=== PATIENT | male | born 1995 | race American Indian/Alaskan Native ===

== ENCOUNTER 2022-01-12 02:30 | Emergency (ER) | payer SELFPAY ==
--- NOTE | 2022-01-12 06:11 | XRay Report ---
LEFT ANKLE 2 VIEWS INDICATION / CLINICAL INFORMATION: left ankle injury COMPARISON: None available. FINDINGS: BONES and JOINT(S): No acute fracture or subluxation. No significant arthritis. SOFT TISSUES: There is mild generalized edema. No other significant abnormality. ADDITIONAL FINDINGS: None. IMPRESSION: Mild left ankle edema without other acute findings. Signer Name: Huan Godoy MD Signed: 01/12/2022 6:06 AM Workstation Name: [id number]
--- NOTE | 2022-01-12 08:15 | Emergency Department Report ---
ED Lower Extremity HPI - General Chief Complaint: Extremity Injury, Lower Stated Complaint: ANKLE PAIN Time Seen by Provider: 01/12/22 07:57 Source: patient, EMS Mode of arrival: Stretcher Limitations: No Limitations - History of Present Illness Initial Comments: 26 yo black male with no pmh presents to ed for evaluation of left ankle pain. He states that he was outside playing with his kids yesterday, fell, and has been having left ankle pain since then. He states that pain is 10/10. MD Complaint: ankle injury -: days(s) (1) Injury: Ankle: Left Type of Injury: other (fall) Place: home Severity: severe Severity scale (0 -10): 10 Improves With: nothing Worsens With: weight bearing Context: fall Associated Symptoms: swelling. denies: snap/pop sensation, numbness, tingling - Related Data Previous Rx's Medication Instructions Recorded Last Taken Type Cyclobenzaprine [Flexeril] 10 mg PO TID PRN #21 tab 01/12/22 Unknown Rx Ketorolac [Toradol] 10 mg PO Q6H PRN #12 tab 01/12/22 Unknown Rx Allergies Allergy/AdvReac Type Severity Reaction Status Date / Time No Known Allergies Allergy Unverified 01/12/22 05:23 ED Review of Systems ROS: Stated complaint: ANKLE PAIN Other details as noted in HPI Comment: All other systems reviewed and negative Constitutional: denies: chills, fever Respiratory: denies: shortness of breath Cardiovascular: denies: chest pain Musculoskeletal: denies: back pain Neurological: denies: headache ED Past Medical Hx - Past Medical History Previous Medical History?: No - Surgical History Past Surgical History?: No - Social History Smoking Status: Never Smoker Substance Use Type: Marijuana - Medications Home Medications: Home Medications Medication Instructions Recorded Confirmed Last Taken Type Cyclobenzaprine [Flexeril] 10 mg PO TID PRN #21 tab 01/12/22 Unknown Rx Ketorolac [Toradol] 10 mg PO Q6H PRN #12 tab 01/12/22 Unknown Rx ED Physical Exam - General Limitations: No Limitations General appearance: alert, in no apparent distress - Head Head exam: Present: atraumatic, normocephalic - Eye Eye exam: Present: normal appearance. Absent: conjunctival injection - Neck Neck exam: Present: normal inspection. Absent: tenderness - Respiratory Respiratory exam: Absent: respiratory distress - Cardiovascular Cardiovascular Exam: Present: regular rate - GI/Abdominal GI/Abdominal exam: Absent: distended - Expanded Lower Extremity Exam Left Ankle exam: Present: full ROM, tenderness. Absent: swelling, dislocation Foot/Toe exam: Present: tenderness, swelling. Absent: full ROM, ecchymosis, dislocation, erythema, calcaneal tenderness, tenderness at base of 5th metatarsal Neuro vascular tendon exam: Present: no vascular compromise. Absent: pulse deficit, abnormal cap refill, motor deficit, sensory deficit, extremity cold to touch, pallor Gait: Positive: observed and limited by pain - Back Exam Back exam: Present: normal inspection - Neurological Exam Neurological exam: Present: alert, oriented X3 - Psychiatric Psychiatric exam: Present: normal affect, normal mood - Skin Skin exam: Present: warm, dry, intact, normal color ED Course Vital Signs 01/12/22 01/12/22 02:37 08:43 Temperature 98.2 F Pulse Rate 84 79 Respiratory 18 14 Rate Blood Pressure 134/68 Blood Pressure 125/62 [Right] O2 Sat by Pulse 98 98 Oximetry - Reevaluation(s) Reevaluation #1: 01/12/22 08:11 Patient noted to have left foot pain and swelling on exam. Area with pain and swelling not visible on x-ray, so patient advised that he needs another x-ray to evaluate painful area. Patient states that he has been here all night and does not want to stay for another x-ray. - Orthopedic Splinting/Casting Injury #1 Side: left Lower Extremity Injury Location: foot Lower Extremity Immobilizer: Massimo wrap Other Orthopedic Equipment: crutches Additional Comments: CMS intact after MASSIMO wrap placed and patient able to ambulate corrected on crutches. ED Lower Extremity MDM - Radiology Data Radiology results: report reviewed, image reviewed Xray left ankle: FINDINGS: BONES and JOINT(S): No acute fracture or subluxation. No significant arthritis. SOFT TISSUES: There is mild generalized edema. No other significant abnormality. ADDITIONAL FINDINGS: None. IMPRESSION: Mild left ankle edema without other acute findings. - Medical Decision Making 26 yo black male with no pmh presents to ed for evaluation of left ankle pain. He states that he was outside playing with his kids yesterday, fell, and has been having left ankle pain since then. He states that pain is 10/10. No acute abnormalities noted on ankle xray, and despite that most of pain and all of the swelling is to left foot, patient does not want to wait for foot xray. Massimo wrap will be placed to foot and patient will be fitted for crutches. He will be discharged home with rx for Naproxen to take as directed and advised to follow up with pcp or orthopedics if no improvement or worsening symptoms. He verbalized understanding of and agreement with plan of care. Critical care attestation.: If time is entered above; I have spent that time in minutes in the direct care of this critically ill patient, excluding procedure time. ED Disposition Clinical Impression: Foot pain, left, Localized swelling of left foot Disposition: HOME / SELF CARE / HOMELESS Is pt being admited?: No Does the pt Need Aspirin: No Condition: Stable Instructions: Crutch Use, Adult, [id number], RICE Therapy for Routine Care of Injuries, [id number], How to Use Cold Therapy, [id number] Additional Instructions: Take medications as prescribed. Follow-up with orthopedics if no improvement or worsening symptoms. Return to the emergency department as needed. Prescriptions: Cyclobenzaprine [Flexeril] 10 mg PO TID PRN #21 tab PRN Reason: Muscle Spasm Ketorolac [Toradol] 10 mg PO Q6H PRN #12 tab PRN Reason: Pain Referrals: JESSICA BOJORQUEZ MD [Staff Physician] - 3-5 Days Forms: Work/School Release Form(ED) Time of Disposition: 08:15
[2022-01-12 08:45] VITALS: BP 125/62
== END 2022-01-12 08:49 | disposition home or self-care (01) ==
LOC: ED 02:30
DX: M79.672 Pain in left foot (principal); R22.42 Localized swelling, mass and lump, left lower limb; F12.90 Cannabis use, unspecified, uncomplicated
CPT/HCPCS: 99283; 99284